=== PATIENT | female | born 1965 | race Two or more races ===

== ENCOUNTER 2017-04-17 03:15 | Emergency (ER) | payer SELFPAY ==
[~2017-04-17] VITALS: Ht 157.5 cm; Wt 73.5 kg
[2017-04-17 03:25] VITALS: BP 145/82
== END 2017-04-17 06:22 | disposition left against medical advice (07) ==
LOC: ER 03:15
DX: R07.9 Chest pain, unspecified (principal); M79.1 Myalgia